=== PATIENT | male | born 1945 | race Hispanic/Latino ===

== ENCOUNTER 2019-07-21 07:47 | Day surgery (SDC) | payer OTHER ==
[~2019-07-21] VITALS: Ht 170.2 cm; Wt 87.1 kg
[2019-07-21] MEDS ORDERED: SODIUM CHLORIDE 0.9% 1000ML 1,000 ML IV ONE (09:24)
[2019-07-21] MEDS ORDERED: BUSP15TA3 PO (10:16)
[2019-07-21] MEDS ORDERED: SERT25TA5 PO (10:16)
[2019-07-21] MEDS ORDERED: RISP0.2515 PO (10:16)
[2019-07-21] MEDS ORDERED: MEMA5TAB15 PO (10:16)
[2019-07-21] MEDS ORDERED: PROP10TA10 PO (10:16)
[2019-07-21] MEDS ORDERED: DONE5TAB33 PO (10:16)
[2019-07-21 10:30] VITALS: BP 130/63
[2019-07-21 10:37] VITALS: BP 109/62
[2019-07-21 10:43] VITALS: BP 137/81
[2019-07-21 10:50] VITALS: BP 127/79
== END 2019-07-21 10:55 | disposition home or self-care (01) ==
LOC: ENDO 07:47
PROVIDERS: ATTEND Internal Medicine
DX: K74.60 Unspecified cirrhosis of liver (principal); K31.89 Other diseases of stomach and duodenum; D64.9 Anemia, unspecified; I10 Essential (primary) hypertension; F34.1 Dysthymic disorder; Z90.49 Acquired absence of other specified parts of digestive tract; Z98.890 Other specified postprocedural states; Z79.899 Other long term (current) drug therapy; Z91.048 Other nonmedicinal substance allergy status
CPT/HCPCS: 43239; 88305; A4215; A4221; A4222; A4223; A4606; A4663; J7030